=== PATIENT | male | born 1940 | race Caucasian/White ===

== ENCOUNTER 2025-09-25 08:34 | Outpatient (CLI) | payer MEDICARE, SELFPAY ==
--- NOTE | ~2025-09-25 | XR_ITS ---
XR lumbar spine 2-3V Indication: Low back pain, pain x 2 weeks, no inj, no surg Comparison: None Findings: No acute fracture. Moderate loss of vertebral height with grade 1 anterolisthesis of L4 on L5. Moderate to severe loss of disc height throughout. Soft tissues unremarkable Impression: No acute abnormality. Reviewed, dictated and finalized at location P. ONAL FORESTER Impression: No acute abnormality.
--- NOTE | ~2025-09-25 | XR_ITS ---
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 Findings: No acute fracture or malalignment. No significant degenerative changes. Soft tissues unremarkable. Impression: No acute fracture or malalignment. Reviewed, dictated and finalized at location P. OLL DIRECTOR Impression: No acute fracture or malalignment.
== END 2025-09-25 08:35 | disposition home or self-care (01) ==
PROVIDERS: PCP Nurse Practitioner Family; Visit Provider Nurse Practitioner Family
DX: M54.50 Low back pain, unspecified (principal); M54.16 Radiculopathy, lumbar region
CPT/HCPCS: 72100; 73521